=== PATIENT | male | born 1965 | race Caucasian/White ===

== ENCOUNTER 2019-10-29 17:24 | Inpatient (IN) | payer OTHER ==
[~2019-10-29] VITALS: Ht 177.8 cm; Wt 100.7 kg
[2019-10-29 18:52] LABS: BASOPHILS ABSOLUTE AUTO 0.03 K/mm3 (0.00-0.23); BASOPHILS PERCENT AUTO 0 % (0-2); EOSINOPHILS ABSOLUTE AUTO 0.03 K/mm3 (0.00-0.68); EOSINOPHILS PERCENT AUTO 0 % (0-6); IMMATURE GRAN ABSOLUTE AUTO 0.01 K/mm3 (0.00-0.10); IMMATURE GRAN PERCENT AUTO 0 % (0-1); LYMPHOCYTES ABSOLUTE AUTO 1.34 K/mm3 (0.84-5.20); LYMPHOCYTES PERCENT AUTO 19 % (21-46); MONOCYTES ABSOLUTE AUTO 0.67 K/mm3 (0.16-1.47); MONOCYTES PERCENT AUTO 10 % (4-13); Mean Corpuscular HGB 30.6 pg (26.0-34.0); Mean Corpuscular HGB Conc 31.4 g/dL (31.5-36.5); Mean Corpuscular Volume 98 fL (80-100); Mean Platelet Volume 9.9 fL (9.1-12.4); NEUTROPHILS ABSOLUTE AUTO 4.92 K/mm3 (1.96-9.15); NEUTROPHILS PERCENT AUTO 70 % (41-73); Platelet Count 197 K/mm3 (150-400); RDW Coefficient Variation 15.2 % (11.7-14.2); RDW Standard Deviation 54.3 fL (35.1-46.3); Red Blood Cell Count 5.88 M/mm3 (4.30-5.90)
[2019-10-29 18:55] LABS: Hematocrit 57.4 % (37.0-53.0)
[2019-10-29 19:13] LABS: Alanine Aminotransfer (ALT/SGP 53 U/L (12-78); Albumin, Blood 3.3 g/dL (3.4-5.0); Albumin/Globulin Ratio 0.9 (0.8-1.8); Alk Phos 97 U/L (50-136); Anion Gap 2 mmol/L (6-16); Aspartate Aminotrans (AST/SGOT 23 U/L (12-37); Bilirubin, Total 0.9 mg/dL (0.1-1.0); Blood Urea Nitrogen 11 mg/dL (8-24); Bun/Creatinine Ratio 30.4 (12.0-20.0); CO2, Blood 37 mmol/L (21-32); Calcium, Blood 8.9 mg/dL (8.5-10.1); Chloride, Blood 98 mmol/L (98-108); Creatinine, Blood 0.36 mg/dL (0.60-1.20); Globulin, Blood 3.5 g/dL (2.2-4.0); Glomerular Filtration Rate >60 (60-); Glucose, Blood 93 mg/dL (70-99); Sodium, Blood 137 mmol/L (136-145); Total Protein, Blood 6.8 g/dL (6.4-8.2); Troponin I 0.021 ng/mL (0.000-0.040)
[2019-10-29 22:13] LABS: CPK Creatine Kinase 213 U/L (39-308); Free Thyroxine 1.28 ng/dL (0.70-1.60)
--- NOTE | 2019-10-30 05:02 | NUR ---
SHIFT SUMMARY: VSS. AFEB. 02 SATS 93-98% ON 2L VIA NC. 02 SAT DROPPED TO 84% ON RA WHEN PT HAD REMOVED 02. PT EDUCATED ABOUT NEED FOR SUPPLEMENTAL 02 AT THIS TIME AND REPLACED NC. DENIES SOB. LSCTA BILATEARLLY W/DIM BASES. SLEPT MINIMALLY. BLE EDEMA +4 PITTING FROM TOES TO MID GENAO. T/F W/1 ASSIST. CONTINENT AND VOIDING IN URINAL. GENERALLY WEAK. NO APPARENT FINE MOTOR MOVEMENTS. MAKING NEEDS KNOWN. WILL CONT TO MONITOR.
--- NOTE | 2019-10-30 08:45 | NUR ---
PT PLEASANT COOP A/O. PRESENTS SOMEWHAT UNMOTIVATED. STATES LIGHT WEAKNESS, BUT NORE COORDINATION ISSUES. FINGER TO NOSE DONE WITH POOR COORDINATION, ABLE TO TOUCH, NOT SMOOTHLY. STOOD FOR BSC TRANSFER, HAS LEGS SPREAD WIDE TO BALANCE. STATES MORE KNEE THAN STRENGTH PROBLEM. ABLE TO STAND, BUT SHAKEY, WEAK. H/R REG, NO MURMER NOTED. PER TELE NSR AT 87 WITH BBB. LUNGS CLEAR, RESP EASY, UNLABORED. ON 2L O2. THIS IS NEW FOR PT. BT X4 LAST BM TODAY. VOIDS URINAL. 1 MOD ASST TO BSC. +2 BLE EDEMA . PT STATES AT LEAST FOR A WEEK. BED IN LOW POSITION,, CALL LITE IN REACH, CALLS APPROP. MOTHER ENTERED TO ROOM.
[2019-10-30 09:01] LABS: BASOPHILS ABSOLUTE AUTO 0.03 K/mm3 (0.00-0.23); BASOPHILS PERCENT AUTO 0 % (0-2); EOSINOPHILS ABSOLUTE AUTO 0.02 K/mm3 (0.00-0.68); EOSINOPHILS PERCENT AUTO 0 % (0-6); IMMATURE GRAN ABSOLUTE AUTO 0.02 K/mm3 (0.00-0.10); IMMATURE GRAN PERCENT AUTO 0 % (0-1); LYMPHOCYTES ABSOLUTE AUTO 1.74 K/mm3 (0.84-5.20); LYMPHOCYTES PERCENT AUTO 24 % (21-46); MONOCYTES ABSOLUTE AUTO 0.64 K/mm3 (0.16-1.47); MONOCYTES PERCENT AUTO 9 % (4-13); Mean Corpuscular HGB 30.3 pg (26.0-34.0); Mean Corpuscular HGB Conc 30.4 g/dL (31.5-36.5); Mean Corpuscular Volume 100 fL (80-100); Mean Platelet Volume 10.3 fL (9.1-12.4); NEUTROPHILS ABSOLUTE AUTO 4.68 K/mm3 (1.96-9.15); NEUTROPHILS PERCENT AUTO 66 % (41-73); Platelet Count 216 K/mm3 (150-400); RDW Coefficient Variation 14.8 % (11.7-14.2); RDW Standard Deviation 55.2 fL (35.1-46.3); Red Blood Cell Count 5.94 M/mm3 (4.30-5.90); White Blood Cell Count 7.13 K/mm3 (4.00-11.30)
[2019-10-30 09:02] LABS: Hematocrit 59.2 % (37.0-53.0)
[2019-10-30 09:04] LABS: Hemoglobin 18.2 g/dL (13.5-17.5); Mean Corpuscular HGB 30.4 pg (26.0-34.0); Mean Corpuscular HGB Conc 30.5 g/dL (31.5-36.5); Mean Corpuscular Volume 100 fL (80-100); Mean Platelet Volume 10.2 fL (9.1-12.4); Platelet Count 227 K/mm3 (150-400); RDW Standard Deviation 55.6 fL (35.1-46.3); Red Blood Cell Count 5.98 M/mm3 (4.30-5.90); White Blood Cell Count 7.08 K/mm3 (4.00-11.30)
[2019-10-30 09:06] LABS: Hematocrit 59.6 % (37.0-53.0)
[2019-10-30 09:22] LABS: Alanine Aminotransfer (ALT/SGP 51 U/L (12-78); Albumin, Blood 3.4 g/dL (3.4-5.0); Albumin/Globulin Ratio 0.9 (0.8-1.8); Alk Phos 98 U/L (50-136); Anion Gap 5 mmol/L (6-16); Aspartate Aminotrans (AST/SGOT 25 U/L (12-37); Bilirubin, Total 0.9 mg/dL (0.1-1.0); Blood Urea Nitrogen 9 mg/dL (8-24); CO2, Blood 40 mmol/L (21-32); Chloride, Blood 93 mmol/L (98-108); Creatinine, Blood 0.41 mg/dL (0.60-1.20); Globulin, Blood 3.6 g/dL (2.2-4.0); Glomerular Filtration Rate >60 (60-); Glucose, Blood 62 mg/dL (70-99); Potassium, Blood 4.6 mmol/L (3.5-5.5); Sodium, Blood 138 mmol/L (136-145)
[2019-10-30 10:10] LABS: Source, Urine Clean Catch
[2019-10-30 10:20] LABS: Bilirubin, Urine Neg (Neg); Blood, Urine Neg (Neg); Glucose Qualitative, Urine Neg (Neg); Ketones, Urine 2+ (Neg); Leukocyte Esterase, Urine Neg (Neg); Nitrite, Urine Neg (Neg); Protein, Urine Neg (Neg); Urobilinogen, Urine NORM (Normal)
[2019-10-30 10:21] LABS: Appearance, Urine Clear (Clear); Color, Urine Yellow (P-Yellow)
--- NOTE | 2019-10-30 11:23 | NUR ---
spoke to dr ferrer re cortisol. okay im if is standard. pharmacy states is normal for im. order was placed .
--- NOTE | 2019-10-30 13:06 | NUR ---
Echocardiogram completed.
--- NOTE | 2019-10-30 15:30 | NUR ---
AIDE CALLED. STATES PT HARD TO AWAKEN.. NOW AWAKE, BUT SLOW TO RESPOND. WHEN I CAME TO ROOM. PT WAS AWAKE. ABLE TO TELL ME NAME . TELL ME MY NAME AND POSITION. PRESENTED FULLY A/O. VSS. TELE NSR WITH BBB RATE 90'S. NO RECENT EVENTS. P97 R16 T 98.0 97%O2 ON [address]L CALLED DR LINDO. NO NEW ORDERS DID SUGGEST TO BRING COFFEE
--- NOTE | 2019-10-30 18:17 | NUR ---
PT PLEASANT TODAY., HAD EPISODE OF LOWER LOC. WAS SLEEPING, VERY HARD TO AWAKEN. 2-3 MIN LATER AWAKE AND TALKING. VSS, SEE NOTES. NO NEW ORDERS. MOTHER IN ROOM MOST OF DAY. PENDING CARDIOLITE TEST TOMORROW. NPO MIDNITE. OTHER BLOOD DIAGNOSTIC TESTS PENDING ALSO. PT DID STATE HAS FELT IF HAS HAD A PAST PRIOR INSTANCE OF FEELING HARD TO AWAKEN. NO OTHER CONCERNS AT THIS TIME. BED IN LOW POSITION, CALL LITE IN REACH, CALLS APROP
--- NOTE | 2019-10-31 05:14 | NUR ---
DISH CARRIER SUMMARY Patient slept well after family left at hs. no complaints of pain overnight. Around 0300, Patient didn't respond to voice when rounding was done. He woke groggily with gentle sternal rub so vitals and 02 saturation could be checked. 02 rapidly went up from 82% on 2 liters to 94% over about 30 seconds as he woke. Patient uncomfortable with 02 in mouth, however it was noted that he sleeps with his mouth wide open,. When patient woke, he was A&OX4. 02 saturation remained >90% for rest of night. Family state that patient does have episodes at night of stopping breathing. It was also noted that patient is unable to make "blowing" motion to exhale. Unable to make a seal around IS or acapella to work on breathing. Pt feels that he is unable to exhale all his air. RT informed and will come to eval and make recommendations for breathing exercises.
[2019-10-31 06:13] LABS: BASOPHILS ABSOLUTE AUTO 0.02 K/mm3 (0.00-0.23); BASOPHILS PERCENT AUTO 0 % (0-2); EOSINOPHILS ABSOLUTE AUTO 0.04 K/mm3 (0.00-0.68); EOSINOPHILS PERCENT AUTO 1 % (0-6); Hemoglobin 17.1 g/dL (13.5-17.5); IMMATURE GRAN ABSOLUTE AUTO 0.01 K/mm3 (0.00-0.10); IMMATURE GRAN PERCENT AUTO 0 % (0-1); LYMPHOCYTES ABSOLUTE AUTO 0.99 K/mm3 (0.84-5.20); LYMPHOCYTES PERCENT AUTO 19 % (21-46); MONOCYTES ABSOLUTE AUTO 0.58 K/mm3 (0.16-1.47); MONOCYTES PERCENT AUTO 11 % (4-13); Mean Corpuscular HGB 30.4 pg (26.0-34.0); Mean Corpuscular HGB Conc 30.5 g/dL (31.5-36.5); Mean Corpuscular Volume 100 fL (80-100); Mean Platelet Volume 10.5 fL (9.1-12.4); NEUTROPHILS PERCENT AUTO 68 % (41-73); Platelet Count 199 K/mm3 (150-400); RDW Coefficient Variation 14.7 % (11.7-14.2); RDW Standard Deviation 54.8 fL (35.1-46.3); Red Blood Cell Count 5.62 M/mm3 (4.30-5.90); White Blood Cell Count 5.14 K/mm3 (4.00-11.30)
[2019-10-31 06:22] LABS: Hematocrit 56.1 % (37.0-53.0)
[2019-10-31 06:44] LABS: Anion Gap 7 mmol/L (6-16); Blood Urea Nitrogen 11 mg/dL (8-24); Bun/Creatinine Ratio 23.4 (12.0-20.0); CO2, Blood 34 mmol/L (21-32); Calcium, Blood 8.7 mg/dL (8.5-10.1); Chloride, Blood 97 mmol/L (98-108); Creatinine, Blood 0.47 mg/dL (0.60-1.20); Glomerular Filtration Rate >60 (60-); Glucose, Blood 71 mg/dL (70-99); Potassium, Blood 4.8 mmol/L (3.5-5.5); Sodium, Blood 138 mmol/L (136-145)
--- NOTE | 2019-10-31 16:34 | NUR ---
PATIENT A/OX4, UP WITH FWW, GB AND 2 ASSIST TO RESTROOM. GAIT VERY WEAK AND UNCOORDINATED. 1ST PART OF STRESS TEST DONE TODAY, 2ND PART WILL BE DONE IN AM. VSS, ON 3LO2 TO MAINTAIN SATS. 2+ EDEMA TO BLE, RECEIVING LASIX. SKIN INTACT. 20G IV TO R FA WNL AND SL. MOTHER AT BEDSIDE THROUGHOUT THIS SHIFT. DENIES ANY PAIN. CALM AND COOPERATIVE WITH CARE. CALLS APPROPRIATELY FOR ASSISTANCE.
--- NOTE | 2019-11-01 04:21 | NUR ---
EVENT MARKETING REPRESENTATIVE SUMMARY Patient states no pain overnight. Was unable to go to sleep at time sleep study was set up for him as he said he is usually up all night watching TV. When I explained again that the sleep study was to evaluate whether or not he has VILMA, and that in order to do this, the patient needed to perform some pertinent sleep hygiene in order for the test to be done, he agreed. Lights and TV off, and patient understood he was to attempt to go to sleep. Door closed for quiet atmosphere. Patient NPO since 2400 for stress portion of FARHAT in AM
[2019-11-01 05:48] LABS: BASOPHILS ABSOLUTE AUTO 0.01 K/mm3 (0.00-0.23); BASOPHILS PERCENT AUTO 0 % (0-2); EOSINOPHILS ABSOLUTE AUTO 0.04 K/mm3 (0.00-0.68); EOSINOPHILS PERCENT AUTO 1 % (0-6); Hemoglobin 17.1 g/dL (13.5-17.5); IMMATURE GRAN ABSOLUTE AUTO 0.01 K/mm3 (0.00-0.10); IMMATURE GRAN PERCENT AUTO 0 % (0-1); LYMPHOCYTES ABSOLUTE AUTO 0.97 K/mm3 (0.84-5.20); LYMPHOCYTES PERCENT AUTO 23 % (21-46); MONOCYTES ABSOLUTE AUTO 0.46 K/mm3 (0.16-1.47); MONOCYTES PERCENT AUTO 11 % (4-13); Mean Corpuscular HGB Conc 29.8 g/dL (31.5-36.5); Mean Corpuscular Volume 101 fL (80-100); Mean Platelet Volume 9.5 fL (9.1-12.4); NEUTROPHILS ABSOLUTE AUTO 2.82 K/mm3 (1.96-9.15); NEUTROPHILS PERCENT AUTO 66 % (41-73); Platelet Count 192 K/mm3 (150-400); RDW Coefficient Variation 14.8 % (11.7-14.2); RDW Standard Deviation 55.8 fL (35.1-46.3); White Blood Cell Count 4.31 K/mm3 (4.00-11.30)
[2019-11-01 05:50] LABS: Hematocrit 57.3 % (37.0-53.0)
[2019-11-01 09:38] LABS: Source, Urine Clean Catch
[2019-11-01 09:50] LABS: Appearance, Urine Clear (Clear); Bilirubin, Urine Neg (Neg); Blood, Urine Neg (Neg); Color, Urine Yellow (P-Yellow); Glucose Qualitative, Urine Neg (Neg); Ketones, Urine Neg (Neg); Leukocyte Esterase, Urine Neg (Neg); Nitrite, Urine Neg (Neg); Protein, Urine Neg (Neg); Urobilinogen, Urine NORM (Normal)
[2019-11-01 10:26] LABS: Hemoglobin 17.9 g/dL (13.5-17.5); Mean Corpuscular HGB 30.8 pg (26.0-34.0); Mean Corpuscular HGB Conc 30.2 g/dL (31.5-36.5); Mean Corpuscular Volume 102 fL (80-100); Mean Platelet Volume 10.1 fL (9.1-12.4); Platelet Count 207 K/mm3 (150-400); RDW Coefficient Variation 14.8 % (11.7-14.2); RDW Standard Deviation 56.1 fL (35.1-46.3); Red Blood Cell Count 5.82 M/mm3 (4.30-5.90); White Blood Cell Count 5.71 K/mm3 (4.00-11.30)
[2019-11-01 10:27] LABS: Hematocrit 59.2 % (37.0-53.0)
[2019-11-01 10:47] LABS: BASOPHILS PERCENT MAN 0 % (0-2); EOSINOPHILS PERCENT MAN 0 % (0-6); LYMPHOCYTES % ATYPICAL MANUAL 2 % (0-0); LYMPHOCYTES ABSOLUTE MAN 0.74 K/mm3 (0.84-5.20); LYMPHOCYTES PERCENT MAN 11 % (21-46); MONOCYTES ABSOLUTE MAN 0.57 K/mm3 (0.16-1.47); MONOCYTES PERCENT MAN 10 % (4-13); NEUTROPHILS ABSOLUTE MAN 4.39 K/mm3 (1.96-9.15); SEG NEUTROPHILS PERCENT MAN 77 % (41-73); TOTAL CELLS COUNTED 100
--- NOTE | 2019-11-01 17:08 | NUR ---
ALERT. ORIENTED. DENIES PAIN OR SOB. HAD LAST PART OF STRESS TEST. AWAITING RESULTS. UNLABORED RESPIRATIONS. ABLE TO MAKE NEEDS KNOWN. WCTM
[2019-11-02 05:29] LABS: BASOPHILS ABSOLUTE AUTO 0.03 K/mm3 (0.00-0.23); BASOPHILS PERCENT AUTO 1 % (0-2); EOSINOPHILS ABSOLUTE AUTO 0.04 K/mm3 (0.00-0.68); EOSINOPHILS PERCENT AUTO 1 % (0-6); Hemoglobin 17.7 g/dL (13.5-17.5); IMMATURE GRAN ABSOLUTE AUTO 0.01 K/mm3 (0.00-0.10); IMMATURE GRAN PERCENT AUTO 0 % (0-1); LYMPHOCYTES ABSOLUTE AUTO 1.27 K/mm3 (0.84-5.20); LYMPHOCYTES PERCENT AUTO 26 % (21-46); MONOCYTES ABSOLUTE AUTO 0.56 K/mm3 (0.16-1.47); MONOCYTES PERCENT AUTO 12 % (4-13); Mean Corpuscular HGB 30.3 pg (26.0-34.0); Mean Corpuscular HGB Conc 30.1 g/dL (31.5-36.5); Mean Corpuscular Volume 101 fL (80-100); NEUTROPHILS ABSOLUTE AUTO 2.97 K/mm3 (1.96-9.15); NEUTROPHILS PERCENT AUTO 61 % (41-73); Platelet Count 227 K/mm3 (150-400); RDW Coefficient Variation 14.5 % (11.7-14.2); RDW Standard Deviation 53.8 fL (35.1-46.3); Red Blood Cell Count 5.84 M/mm3 (4.30-5.90); White Blood Cell Count 4.88 K/mm3 (4.00-11.30)
[2019-11-02 05:41] LABS: Hematocrit 58.8 % (37.0-53.0)
[2019-11-02 05:53] LABS: Alanine Aminotransfer (ALT/SGP 42 U/L (12-78); Albumin, Blood 3.4 g/dL (3.4-5.0); Albumin/Globulin Ratio 0.9 (0.8-1.8); Alk Phos 86 U/L (50-136); Anion Gap 0 mmol/L (6-16); Aspartate Aminotrans (AST/SGOT 22 U/L (12-37); Bilirubin, Total 0.7 mg/dL (0.1-1.0); Blood Urea Nitrogen 11 mg/dL (8-24); Bun/Creatinine Ratio 33.6 (12.0-20.0); CO2, Blood 43 mmol/L (21-32); Calcium, Blood 9.1 mg/dL (8.5-10.1); Chloride, Blood 91 mmol/L (98-108); Creatinine, Blood 0.33 mg/dL (0.60-1.20); Globulin, Blood 3.8 g/dL (2.2-4.0); Glomerular Filtration Rate >60 (60-); Glucose, Blood 103 mg/dL (70-99); Potassium, Blood 4.7 mmol/L (3.5-5.5); Sodium, Blood 134 mmol/L (136-145); Total Protein, Blood 7.2 g/dL (6.4-8.2)
--- NOTE | 2019-11-02 07:18 | NUR ---
SHIFT SUMMARY: PATIENT IS A&OX 3, VS ARE STABLE NO COMPLAINTS OF PAIN OR SOB, USING THE URINAL TO VOID. RENAL ULTRASOUND WAS COMPLETED LAST EVENING AND A CARDIALOGY AND HEM/OCOLOGY CONSULTS WERE CALLED.
[2019-11-02] MEDS ORDERED: ASPI81CH PO (12:51)
[2019-11-02] MEDS ORDERED: ATEN25 PO (12:51)
[2019-11-02] MEDS ORDERED: ONDA4ODT MM (13:12)
[2019-11-02] MEDS ORDERED: FURO20 PO (13:12)
[2019-11-02] MEDS ORDERED: POTA10T PO (13:13)
--- NOTE | 2019-11-02 17:11 | NUR ---
REVIEW D'C INSTRUCTIONS W/PATIENT. MOTHER IS PICKING UP OXYGEN. AWARE HAS 2 APPTS--FRIDAY W/NEW PCP AND 11/23 W/. AWARE HAS MEDS AT [facility]. ANSWER ALL QUESTIONS. WAITING FOR RELATIVE TO EMAIL DESIGNER.
== END 2019-11-02 17:54 | disposition home or self-care (01) | DRG 947 ==
LOC: ER 17:24 → MEDS 17:25 → ENPENDDIS 11-02 11:54 → MEDS 11-02 17:54
PROVIDERS: Family Medicine; Physician Assistant; ADMIT Internal Medicine
DX: R60.0 Localized edema (principal); J96.21 Acute and chronic respiratory failure with hypoxia; J98.11 Atelectasis; M62.81 Muscle weakness (generalized); D75.1 Secondary polycythemia; I50.810 Right heart failure, unspecified; Q67.6 Pectus excavatum; E66.9 Obesity, unspecified; Z87.891 Personal history of nicotine dependence; G47.33 Obstructive sleep apnea (adult) (pediatric); J44.9 Chronic obstructive pulmonary disease, unspecified
CPT/HCPCS: 36415; 70450; 71260; 72125; 74177; 76770; 78452; 80048; 80053; 80400; 81003; 81270; 82533; 82550; 83540; 83550; 83735; 83880; 84439; 84443; 84484; 85007; 85025; 85027; 93005; 93010; 93017; 93306; 93970; 94761; 94762; 96372; 96374-59; 97110; 97161; 97166; 97530; 99285-25; A9270-GY; A9500; G0378; J0706; J0834; J1650; J1940; J2785; Q9967

== ENCOUNTER 2019-11-07 10:38 | Emergency (ER) | payer OTHER ==
[~2019-11-07] VITALS: Ht 177.8 cm; Wt 101.2 kg
[~2019-11-07 10:38] MED LIST: ASPI81CH PO; ATEN25 PO; FURO20 PO; ONDA4ODT MM; POTA10T PO
[2019-11-07] MEDS ORDERED: RELIEF KNEE CL1 EACH EXT (11:09)
== END 2019-11-07 12:58 | disposition home or self-care (01) ==
LOC: ER 10:38
DX: I50.9 Heart failure, unspecified (principal); R09.02 Hypoxemia; R09.81 Nasal congestion; R53.1 Weakness; Z88.0 Allergy status to penicillin; Z79.82 Long term (current) use of aspirin; Z79.899 Other long term (current) drug therapy; Z87.891 Personal history of nicotine dependence
CPT/HCPCS: 99283

== ENCOUNTER 2021-01-20 08:24 | Emergency (ER) | payer OTHER ==
[~2021-01-20] VITALS: Ht 177.8 cm; Wt 106.6 kg
[~2021-01-20 08:24] MED LIST changes: +RELIEF KNEE CL1 EACH EXT
[2021-01-20 09:23] LABS: BASOPHILS ABSOLUTE AUTO 0.03 K/mm3 (0.00-0.23); BASOPHILS PERCENT AUTO 1 % (0-2); EOSINOPHILS ABSOLUTE AUTO 0.09 K/mm3 (0.00-0.68); EOSINOPHILS PERCENT AUTO 2 % (0-6); Hematocrit 53.1 % (37.0-53.0); Hemoglobin 17.2 g/dL (13.5-17.5); IMMATURE GRAN PERCENT AUTO 0 % (0-1); LYMPHOCYTES ABSOLUTE AUTO 1.83 K/mm3 (0.84-5.20); LYMPHOCYTES PERCENT AUTO 32 % (21-46); MONOCYTES ABSOLUTE AUTO 0.56 K/mm3 (0.16-1.47); MONOCYTES PERCENT AUTO 10 % (4-13); Mean Corpuscular HGB 30.8 pg (26.0-34.0); Mean Corpuscular HGB Conc 32.4 g/dL (31.5-36.5); Mean Corpuscular Volume 95 fL (80-100); Mean Platelet Volume 10.8 fL (9.1-12.4); NEUTROPHILS ABSOLUTE AUTO 3.24 K/mm3 (1.96-9.15); NEUTROPHILS PERCENT AUTO 56 % (41-73); Platelet Count 216 K/mm3 (150-400); RDW Coefficient Variation 13.2 % (11.7-14.2); RDW Standard Deviation 46.9 fL (35.1-46.3); Red Blood Cell Count 5.58 M/mm3 (4.30-5.90); White Blood Cell Count 5.75 K/mm3 (4.00-11.30)
[2021-01-20 09:37] LABS: Alanine Aminotransfer (ALT/SGP 58 U/L (12-78); Albumin, Blood 3.7 g/dL (3.4-5.0); Albumin/Globulin Ratio 0.9 (0.8-1.8); Alk Phos 97 U/L (50-136); Anion Gap 1 mmol/L (6-16); Aspartate Aminotrans (AST/SGOT 29 U/L (12-37); Bilirubin, Total 0.8 mg/dL (0.1-1.0); Blood Urea Nitrogen 12 mg/dL (8-24); Bun/Creatinine Ratio 21.7 (12.0-20.0); CO2, Blood 34 mmol/L (21-32); Calcium, Blood 8.9 mg/dL (8.5-10.1); Chloride, Blood 102 mmol/L (98-108); Creatinine, Blood 0.55 mg/dL (0.60-1.20); Glomerular Filtration Rate >60 (60-); Glucose, Blood 90 mg/dL (70-99); Potassium, Blood 4.2 mmol/L (3.5-5.5); Sodium, Blood 137 mmol/L (136-145); Total Protein, Blood 7.7 g/dL (6.4-8.2); Troponin I <0.015 ng/mL (0.000-0.040)
[2021-01-20] MEDS ORDERED: FURO20 PO (10:31)
[2021-01-20] MEDS ORDERED: FUROSEMIDE40 MG PO (10:41)
[2021-01-20] MEDS ORDERED: METO25ER PO (10:45)
== END 2021-01-20 11:00 | disposition home or self-care (01) ==
LOC: ER 08:24
PROVIDERS: Physician Assistant
DX: I10 Essential (primary) hypertension (principal); Z88.0 Allergy status to penicillin; Z79.82 Long term (current) use of aspirin; Z79.899 Other long term (current) drug therapy; Z87.891 Personal history of nicotine dependence
CPT/HCPCS: 36415; 71046; 80053; 83880; 84484; 85025; 93005; 93010; 99284-25; A9270

== ENCOUNTER 2021-01-24 12:24 | Emergency (ER) | payer OTHER ==
[~2021-01-24] VITALS: Ht 177.8 cm; Wt 106.6 kg
[~2021-01-24 12:24] MED LIST changes: +FUROSEMIDE40 MG PO; +METO25ER PO
[2021-01-24 13:06] LABS: BASOPHILS ABSOLUTE AUTO 0.03 K/mm3 (0.00-0.23); BASOPHILS PERCENT AUTO 0 % (0-2); EOSINOPHILS ABSOLUTE AUTO 0.12 K/mm3 (0.00-0.68); EOSINOPHILS PERCENT AUTO 2 % (0-6); Hemoglobin 18.2 g/dL (13.5-17.5); IMMATURE GRAN ABSOLUTE AUTO 0.01 K/mm3 (0.00-0.10); IMMATURE GRAN PERCENT AUTO 0 % (0-1); LYMPHOCYTES ABSOLUTE AUTO 2.54 K/mm3 (0.84-5.20); LYMPHOCYTES PERCENT AUTO 35 % (21-46); MONOCYTES ABSOLUTE AUTO 0.69 K/mm3 (0.16-1.47); MONOCYTES PERCENT AUTO 10 % (4-13); Mean Corpuscular HGB 30.8 pg (26.0-34.0); Mean Corpuscular HGB Conc 32.9 g/dL (31.5-36.5); Mean Corpuscular Volume 94 fL (80-100); Mean Platelet Volume 10.8 fL (9.1-12.4); NEUTROPHILS ABSOLUTE AUTO 3.86 K/mm3 (1.96-9.15); NEUTROPHILS PERCENT AUTO 53 % (41-73); Platelet Count 234 K/mm3 (150-400); RDW Coefficient Variation 12.8 % (11.7-14.2); RDW Standard Deviation 44.9 fL (35.1-46.3); Red Blood Cell Count 5.91 M/mm3 (4.30-5.90); White Blood Cell Count 7.25 K/mm3 (4.00-11.30)
[2021-01-24 13:08] LABS: Hematocrit 55.3 % (37.0-53.0)
[2021-01-24 13:33] LABS: Alanine Aminotransfer (ALT/SGP 69 U/L (12-78); Albumin, Blood 3.9 g/dL (3.4-5.0); Albumin/Globulin Ratio 0.9 (0.8-1.8); Alk Phos 101 U/L (50-136); Anion Gap 4 mmol/L (6-16); Aspartate Aminotrans (AST/SGOT 44 U/L (12-37); Bilirubin, Total 0.8 mg/dL (0.1-1.0); Blood Urea Nitrogen 10 mg/dL (8-24); Bun/Creatinine Ratio 17.9 (12.0-20.0); CO2, Blood 32 mmol/L (21-32); Calcium, Blood 9.4 mg/dL (8.5-10.1); Chloride, Blood 103 mmol/L (98-108); Creatinine, Blood 0.56 mg/dL (0.60-1.20); Globulin, Blood 4.2 g/dL (2.2-4.0); Glomerular Filtration Rate >60 (60-); Glucose, Blood 96 mg/dL (70-99); Potassium, Blood 4.6 mmol/L (3.5-5.5); Sodium, Blood 139 mmol/L (136-145); Total Protein, Blood 8.1 g/dL (6.4-8.2); Troponin I <0.015 ng/mL (0.000-0.040)
== END 2021-01-24 15:00 | disposition home or self-care (01) ==
LOC: ER 12:24
PROVIDERS: Physician Assistant
DX: R06.02 Shortness of breath (principal); Z79.899 Other long term (current) drug therapy; Z88.0 Allergy status to penicillin; Z87.891 Personal history of nicotine dependence
CPT/HCPCS: 36415; 71046; 80053; 83880; 84484; 85025; 93005; 93010; 99284-25

== ENCOUNTER 2021-01-24 19:43 | Emergency (ER) | payer OTHER ==
[~2021-01-24] VITALS: Ht 177.8 cm; Wt 122.5 kg
== END 2021-01-25 00:51 | disposition home or self-care (01) ==
LOC: ER 19:43
DX: F41.9 Anxiety disorder, unspecified (principal); Z88.0 Allergy status to penicillin; Z79.82 Long term (current) use of aspirin; Z79.899 Other long term (current) drug therapy
CPT/HCPCS: 36415; 71260; 84484; 93005; 93010; 99285-25; Q9967

== ENCOUNTER 2021-08-06 21:45 | Inpatient (IN) | payer OTHER ==
[~2021-08-06] VITALS: Ht 177.8 cm; Wt 101.7 kg
[2021-08-06 22:46] LABS: BASOPHILS ABSOLUTE AUTO 0.03 K/mm3 (0.00-0.23); BASOPHILS PERCENT AUTO 0 % (0-2); EOSINOPHILS ABSOLUTE AUTO 0.01 K/mm3 (0.00-0.68); EOSINOPHILS PERCENT AUTO 0 % (0-6); Hemoglobin 18.8 g/dL (13.5-17.5); IMMATURE GRAN ABSOLUTE AUTO 0.02 K/mm3 (0.00-0.10); IMMATURE GRAN PERCENT AUTO 0 % (0-1); LYMPHOCYTES ABSOLUTE AUTO 1.15 K/mm3 (0.84-5.20); LYMPHOCYTES PERCENT AUTO 14 % (21-46); MONOCYTES ABSOLUTE AUTO 0.63 K/mm3 (0.16-1.47); MONOCYTES PERCENT AUTO 8 % (4-13); Mean Corpuscular HGB 31.3 pg (26.0-34.0); Mean Corpuscular HGB Conc 32.9 g/dL (31.5-36.5); Mean Corpuscular Volume 95 fL (80-100); NEUTROPHILS ABSOLUTE AUTO 6.46 K/mm3 (1.96-9.15); NEUTROPHILS PERCENT AUTO 78 % (41-73); Platelet Count 220 K/mm3 (150-400); RDW Coefficient Variation 14.1 % (11.7-14.2); Red Blood Cell Count 6.01 M/mm3 (4.30-5.90)
[2021-08-06 22:51] LABS: Hematocrit 57.2 % (37.0-53.0)
[2021-08-06 23:06] LABS: Alanine Aminotransfer (ALT/SGP 38 U/L (12-78); Albumin, Blood 3.3 g/dL (3.4-5.0); Albumin/Globulin Ratio 0.9 (0.8-1.8); Alk Phos 96 U/L (50-136); Anion Gap 4 mmol/L (6-16); Aspartate Aminotrans (AST/SGOT 20 U/L (12-37); Bilirubin, Total 0.9 mg/dL (0.1-1.0); Blood Urea Nitrogen 13 mg/dL (8-24); Bun/Creatinine Ratio 33.3 (12.0-20.0); CO2, Blood 38 mmol/L (21-32); Calcium, Blood 8.8 mg/dL (8.5-10.1); Chloride, Blood 84 mmol/L (98-108); Creatinine, Blood 0.39 mg/dL (0.60-1.20); Globulin, Blood 3.7 g/dL (2.2-4.0); Glomerular Filtration Rate >60 (60-); Glucose, Blood 107 mg/dL (70-99); Potassium, Blood 5.3 mmol/L (3.5-5.5); Sodium, Blood 126 mmol/L (136-145); Troponin I <0.015 ng/mL (0.000-0.040)
[2021-08-06 23:38] LABS: Influenza A, PCR NEGATIVE (NEGATIVE); Influenza B, PCR NEGATIVE (NEGATIVE); Resp Syncytial Virus, PCR NEGATIVE (NEGATIVE)
[2021-08-06 23:46] LABS: SARS-Cov-2 (COVID-19) PCR, MMC POSITIVE (NEGATIVE)
[2021-08-07 05:44] LABS: BASOPHILS ABSOLUTE AUTO 0.04 K/mm3 (0.00-0.23); BASOPHILS PERCENT AUTO 1 % (0-2); EOSINOPHILS PERCENT AUTO 0 % (0-6); Hemoglobin 19.7 g/dL (13.5-17.5); IMMATURE GRAN ABSOLUTE AUTO 0.12 K/mm3 (0.00-0.10); IMMATURE GRAN PERCENT AUTO 2 % (0-1); LYMPHOCYTES ABSOLUTE AUTO 0.42 K/mm3 (0.84-5.20); LYMPHOCYTES PERCENT AUTO 5 % (21-46); MONOCYTES PERCENT AUTO 1 % (4-13); Mean Corpuscular HGB 31.1 pg (26.0-34.0); Mean Corpuscular HGB Conc 31.9 g/dL (31.5-36.5); Mean Corpuscular Volume 98 fL (80-100); Mean Platelet Volume 10.2 fL (9.1-12.4); NEUTROPHILS ABSOLUTE AUTO 7.53 K/mm3 (1.96-9.15); NEUTROPHILS PERCENT AUTO 92 % (41-73); Platelet Count 198 K/mm3 (150-400); RDW Coefficient Variation 14.2 % (11.7-14.2); RDW Standard Deviation 50.9 fL (35.1-46.3); Red Blood Cell Count 6.34 M/mm3 (4.30-5.90); White Blood Cell Count 8.21 K/mm3 (4.00-11.30)
[2021-08-07 05:48] LABS: Hematocrit 61.8 % (37.0-53.0)
[2021-08-07 06:45] LABS: Alanine Aminotransfer (ALT/SGP 42 U/L (12-78); Albumin, Blood 3.3 g/dL (3.4-5.0); Albumin/Globulin Ratio 0.8 (0.8-1.8); Alk Phos 111 U/L (50-136); Anion Gap 10 mmol/L (6-16); Aspartate Aminotrans (AST/SGOT 62 U/L (12-37); Bilirubin, Total 1.2 mg/dL (0.1-1.0); Blood Urea Nitrogen 11 mg/dL (8-24); Bun/Creatinine Ratio 33.4 (12.0-20.0); CO2, Blood 30 mmol/L (21-32); Calcium, Blood 8.2 mg/dL (8.5-10.1); Chloride, Blood 86 mmol/L (98-108); Creatinine, Blood 0.33 mg/dL (0.60-1.20); Glomerular Filtration Rate >60 (60-); Glucose, Blood 143 mg/dL (70-99); Sodium, Blood 126 mmol/L (136-145); Total Protein, Blood 7.3 g/dL (6.4-8.2)
[2021-08-07 06:46] LABS: Potassium, Blood 6.4 mmol/L (3.5-5.5)
[2021-08-07 08:46] LABS: Base Excess Venous 10.3 mmol/L; Bicarbonate Venous 27.8 mmol/L (24.0-30.0); pH Blood Venous 7.15 (7.34-7.37)
[2021-08-07 08:48] LABS: PCO2 Venous > 105 mmHg (38-42)
[2021-08-07 10:50] LABS: PCO2 Arterial > 105 mmHg (35-45); PO2 Arterial 125 mmHg (80-100); pH Blood Arterial 7.18 (7.35-7.45)
[2021-08-07 12:01] LABS: PCO2 Arterial 92.7 mmHg (35-45); PO2 Arterial 88.2 mmHg (80-100); pH Blood Arterial 7.24 (7.35-7.45)
[2021-08-07 12:46] LABS: Anion Gap 5 mmol/L (6-16); Blood Urea Nitrogen 12 mg/dL (8-24); Bun/Creatinine Ratio 25.8 (12.0-20.0); CO2, Blood 40 mmol/L (21-32); Chloride, Blood 84 mmol/L (98-108); Creatinine, Blood 0.47 mg/dL (0.60-1.20); Glomerular Filtration Rate >60 (60-); Glucose, Blood 114 mg/dL (70-99); Potassium, Blood 6.1 mmol/L (3.5-5.5); Sodium, Blood 129 mmol/L (136-145)
[2021-08-07 13:10] LABS: Anion Gap 7 mmol/L (6-16); Blood Urea Nitrogen 13 mg/dL (8-24); Bun/Creatinine Ratio 30.9 (12.0-20.0); CO2, Blood 33 mmol/L (21-32); Calcium, Blood 8.8 mg/dL (8.5-10.1); Chloride, Blood 88 mmol/L (98-108); Creatinine, Blood 0.42 mg/dL (0.60-1.20); Glomerular Filtration Rate >60 (60-); Glucose, Blood 122 mg/dL (70-99); Potassium, Blood 5.3 mmol/L (3.5-5.5); Sodium, Blood 128 mmol/L (136-145)
[2021-08-07 17:17] LABS: Anion Gap 3 mmol/L (6-16); Blood Urea Nitrogen 11 mg/dL (8-24); Bun/Creatinine Ratio 30.5 (12.0-20.0); CO2, Blood 38 mmol/L (21-32); Calcium, Blood 9.3 mg/dL (8.5-10.1); Chloride, Blood 90 mmol/L (98-108); Creatinine, Blood 0.36 mg/dL (0.60-1.20); Glomerular Filtration Rate >60 (60-); Glucose, Blood 81 mg/dL (70-99); Sodium, Blood 131 mmol/L (136-145)
--- NOTE | 2021-08-07 18:39 | NUR ---
NEW ADMIT FROM ER [id number]: AOX4 BUT CONFUSED AT TIMES, SLOW TO RESPOND, MENTATION IMPROVED OVER SHIFT, DENIES P/N/V, PUPILS EQUAL BRISK, BIPAP 30% FOR HYPERCAPNIA, ABG IMPROVEMENT IN ACIDOSIS, LUNGS DIM, DENIES SOB, SATS WNL ON BIPAP, DESATS MID 70S WITH LONG RECOVERY TIME W/O BIPAP, BP'S SOFT THIS SHIFT, LR BOLUS AND GTT TO MAINTAIN MAP>65, +2 STRONG PULSES, VOIDS URINAL, LBM 08/05 PER PATIENT, SWALLOW PASSED, MECHANICAL SOFT DIET PLACED.
[2021-08-08 04:00] LABS: Bicarbonate Venous 33.7 mmol/L (24.0-30.0); PCO2 Venous 40.5 mmHg (38-42); PO2 Venous 33.7 mmHg (38-42); pH Blood Venous 7.54 (7.34-7.37)
--- NOTE | 2021-08-08 04:08 | NUR ---
VBG results read back to Dr. Fernandez: ph 7.54, CO2 40.5, P02 33.7, HCO3 33.7 No changes to BiPAP at this time, per Dr. Fernandez: awaiting results of chem/other labs before making interventions. Patient currently sating well in mid to high 90s% with RR in low tachypnic in 20s.
[2021-08-08 04:13] LABS: Hemoglobin 18.4 g/dL (13.5-17.5); Mean Corpuscular HGB 31.5 pg (26.0-34.0); Mean Corpuscular HGB Conc 32.7 g/dL (31.5-36.5); Mean Corpuscular Volume 96 fL (80-100); Mean Platelet Volume 10.7 fL (9.1-12.4); Platelet Count 211 K/mm3 (150-400); RDW Coefficient Variation 14.3 % (11.7-14.2); RDW Standard Deviation 51.1 fL (35.1-46.3); Red Blood Cell Count 5.85 M/mm3 (4.30-5.90); White Blood Cell Count 8.99 K/mm3 (4.00-11.30)
[2021-08-08 04:15] LABS: Hematocrit 56.2 % (37.0-53.0)
[2021-08-08 05:27] LABS: Anion Gap 12 mmol/L (6-16); Blood Urea Nitrogen 12 mg/dL (8-24); Bun/Creatinine Ratio 28.4 (12.0-20.0); CO2, Blood 30 mmol/L (21-32); Chloride, Blood 94 mmol/L (98-108); Creatinine, Blood 0.42 mg/dL (0.60-1.20); Glomerular Filtration Rate >60 (60-); Glucose, Blood 52 mg/dL (70-99); Potassium, Blood 5.9 mmol/L (3.5-5.5); Sodium, Blood 136 mmol/L (136-145)
--- NOTE | 2021-08-08 05:46 | NUR ---
Dr. Fernandez called for lab results: K 5.9 Glucose 52 and NBP 87/55 (65) pt hx of fluid responsive with previous 150ml/hr LR x1L. Orders for NS bolus, D50, insulin, Ca Gluc and recheck at 10am.
--- NOTE | 2021-08-08 06:47 | NUR ---
End of shift summary: Patient ph change from acidotic to alkalotic --> BiPAP remains on Patient potassium level elevated again --> insulin regular and calc gluc order Patient glucose serum low --> dextrose amp Patient oriented x4 overnight, low motivation to attempt self care but patient did assist RN with turning self. No BM. Urinal use with assist. Refused bath. Oral care provided x3 overnight. NBP low this morning --> 500ml NS bolus ordered and running Patient has 2 PIVs, flush fine but no blood return and difficult poke for phlebotomy this morning.
--- NOTE | 2021-08-08 17:30 | NUR ---
SHIFT SUMMARY PT DID WELL THIS SHIFT. PT HAS REMAINED AWAKE, ALERT, AND ORIENTED THIS SHIFT. PT HAS REMAINED OFF BIPAP AND ON NC ALL DAY. NC TITRATED DOWN TO 2L 02 AT THIS TIME. VITAL SIGNS HAVE REMAINED STABLE. PT TAKING IN PO INTAKE WELL. PT USES URINAL INDEPENDENTLY TO VOID. PT REMAINS WEAK, BUT IS ABLE TO MOVE SELF IN BED FOR COMFORT. PT MOTHER AT BEDSIDE TO VISIT THIS AFTERNOON. WILL CONTINUE TO MONITOR AND REPORT OFF TO ONCOMING RN.
[2021-08-08 20:23] LABS: Anion Gap 2 mmol/L (6-16); Blood Urea Nitrogen 12 mg/dL (8-24); Bun/Creatinine Ratio 25.5 (12.0-20.0); CO2, Blood 39 mmol/L (21-32); Chloride, Blood 96 mmol/L (98-108); Creatinine, Blood 0.47 mg/dL (0.60-1.20); Glomerular Filtration Rate >60 (60-); Glucose, Blood 105 mg/dL (70-99); Sodium, Blood 137 mmol/L (136-145)
--- NOTE | 2021-08-08 21:18 | NUR ---
Patient declined PO colace tonight, patient stated he is not constipated and had a BM earlier today.
--- NOTE | 2021-08-09 00:07 | NUR ---
Dr. Fernandez called for update on blood cultures. Awaiting response/call back.
--- NOTE | 2021-08-09 01:17 | NUR ---
Called Dr. Fernandez for blood culture result --> no interventions at this time, wait for final result
[2021-08-09 05:11] LABS: Anion Gap 6 mmol/L (6-16); Blood Urea Nitrogen 11 mg/dL (8-24); Bun/Creatinine Ratio 25.5 (12.0-20.0); CO2, Blood 37 mmol/L (21-32); Calcium, Blood 8.9 mg/dL (8.5-10.1); Chloride, Blood 97 mmol/L (98-108); Creatinine, Blood 0.43 mg/dL (0.60-1.20); Glomerular Filtration Rate >60 (60-); Glucose, Blood 60 mg/dL (70-99); Potassium, Blood 5.2 mmol/L (3.5-5.5); Sodium, Blood 140 mmol/L (136-145)
--- NOTE | 2021-08-09 06:32 | NUR ---
End of shift summary: Patient VSS. No PRNs required overnight. Patient alert and oriented. Follow commands. Generalized weakness but equal strenght bilaterally. (Pending muscular dystrophy diagnosis with PCP per pt.) Sinus Rhythm to Sinus Tach overnight with prolonged QRS (>0.12). No CP/SOB. BLE to lower feet remain present with cap refill > 3 seconds. BUE edema decreased. Extremities elevated on pillows x4. BIPAP worn HS: 14/6, 30% rate 18 --> 2-3L NC when awake, lungs clear/dim Negative GI/ and skin assessment. Blood culture 1/2 positive. Awaiting final results.
--- NOTE | 2021-08-09 17:53 | NUR ---
SHIFT SUMMARY PT DID WELL THIS SHIFT. PT HAS REMAINED AWAKE, ALERT AND ORIENTED. PT HAS REMAINED ON 2L O2 NC ALL SHIFT. PT DENIES SOB. VITAL SIGNS HAVE REMAINED STABLE. NS INFUSING TKO. PT USING URINAL INDEPENDENTLY AND PT REPOSITIONS SELF IN BED INDEPENDENTLY. PT TAKING PO INTAKE WELL. PT MOTHER AT BEDSIDE THIS AFTERNOON. UPDATED TO PLAN OF CARE. WILL CONTINUE TO MONITOR AND REPORT OFF TO ONCOMING RN.
--- NOTE | 2021-08-09 22:21 | NUR ---
Dr. Justice called: Patient HR change from sinus tach low 100s to SVT 150s-160s sustained about 20 seconds without symptoms. No SOB. No CP. No c/o heart palpitations, etc. Orders for labs and EKG.
--- NOTE | 2021-08-09 22:50 | NUR ---
EKG reading: Vent. rate 80bpm RUDY 190ms QRS 132ms QT/QTc 394/454ms Normal sinus rhythm Possible Left atrial enlargement Indeterminate axis Right BBB Inferior infarct, age undetermined Anterolateral infarct, age undetermined Abnormal ECG Blood drawn by merchandise manager: labs sent, pending results
[2021-08-09 23:09] LABS: Anion Gap 3 mmol/L (6-16); Blood Urea Nitrogen 14 mg/dL (8-24); Bun/Creatinine Ratio 32.2 (12.0-20.0); CO2, Blood 31 mmol/L (21-32); Calcium, Blood 8.9 mg/dL (8.5-10.1); Chloride, Blood 101 mmol/L (98-108); Creatinine, Blood 0.44 mg/dL (0.60-1.20); Glomerular Filtration Rate >60 (60-); Glucose, Blood 138 mg/dL (70-99); Magnesium, Blood 1.8 mg/dL (1.6-2.4); Potassium, Blood 5.7 mmol/L (3.5-5.5); Sodium, Blood 135 mmol/L (136-145)
--- NOTE | 2021-08-09 23:53 | NUR ---
Dr. Justice notified of EKG and lab results: K 5.7 BUN 14 Cre 0.44 GFR > 60 Mag 1.8 Intervention orders: 1 gm of Mag, redraw BMP routine in morning, no additional interventions for EKG other than updated report to next RN
[2021-08-10 04:15] LABS: Magnesium, Blood 2.2 mg/dL (1.6-2.4)
[2021-08-10 04:18] LABS: Anion Gap 6 mmol/L (6-16); Blood Urea Nitrogen 12 mg/dL (8-24); Bun/Creatinine Ratio 26.8 (12.0-20.0); CO2, Blood 35 mmol/L (21-32); Calcium, Blood 9.6 mg/dL (8.5-10.1); Chloride, Blood 98 mmol/L (98-108); Creatinine, Blood 0.45 mg/dL (0.60-1.20); Glomerular Filtration Rate >60 (60-); Glucose, Blood 87 mg/dL (70-99); Potassium, Blood 6.2 mmol/L (3.5-5.5); Sodium, Blood 139 mmol/L (136-145)
--- NOTE | 2021-08-10 04:23 | NUR ---
Call made to Dr. Fernandez to notify of critical potassium 6.2: waiting for call back.
--- NOTE | 2021-08-10 06:32 | NUR ---
End of shift summary: Magnesium sulfate given for Magnesium 1.8 1 amp D50, 5u R insulin, and calcium gluconate given for critical K 6.2 (recheck at 0900) EKG taken for unsustained SVT 150s-160s. (No s/s during event, NBP and pulse ox WNL) BiPAP use for approx 4 hours overnight.
--- NOTE | 2021-08-10 08:45 | NUR ---
AM NOTE.... ASSUMED CARE OF PT AT 0700, THE PT IS A&Ox4, HE IS ON 2L NC WITH O2 SATS >90% L/S CLEAR IN THE UPPER/MID AND DIM IN THE LOWER LOBES. THE PT'S BP IS CURRENTLY STABLE. THE PT IS IN SR W/BBB IN THE 80'S-90'S ST W/BBB WITH ACTIVITY/EXERTION. THE PT HAS 1+ EDEMA TO HIS BLE AND DEPENDENT EDEMA TO HIS BUE. THE PT DENIES ANY PAIN AT THIS TIME. BT PRESENT AND HYPOATIVE, ABD IS SOFT AND NONTENDER TO PALP. THE PT IS ABLE TO USE THE URINAL INDEPENDENTLY IN THE BED. HE ALSO ATE ALL OF HIS BREAKFAST THIS AM. THE PT HAD A BED BATH AND LINEN CHANGE BY THE WATERWORKS EMPLOYEE THIS AM. CALL LIGHT IN REACH WILL CONTINUE TO MONITOR.
--- NOTE | 2021-08-10 11:05 | NUR ---
PT UPDATE.... THE PT WAS TRIALED OFF OF O2 FOR APROX 30 MINS, HIS O2 SATS WERE 90-91% BUT WOULD DROP DOWN TO 86-87% WITH TALKING OR MOVEMENT, THE PT'S O2 WAS PLACED BACK ON THE PT AT 1.5L VIA NC TO KEEP HIS O2 SATS >89%. THE PT DENIED ANY SOB DURING THESE EPISODES OF HYPOXIA. WILL CONTINUE TO MONITOR.
--- NOTE | 2021-08-10 17:28 | NUR ---
SHIFT SUMMARY.... NO ACUTE NEGATIVE CHANGES NOTED THIS SHIFT. THE PT'S VS HAVE BEEN STABLE T/O THIS SHIFT. THE PT HAS BEEN ON RA-2L NC TO KEEP HIS O2 SATS >90%. THE PT WORKED WITH PT/OT AND DID WELL. THE PT IS TO USE HIS NEW HOME BIPAP WHILE SLEEPING AND NC WHILE AWAKE. THE PT AND HIS MOTHER WERE EDUATED ON THE PT'S CURRENT ILLNESS, COVID 19, ISOLATION PRECAUTIONS, THE NEW BIPAP, AND THE IMPORTANCE OF HIS WEARING THE BIPAP WHILE SLEEPING. BOTH THE PT AND HIS MOTHER VERBALIZED THEIR UNDERSTANDING. BUT THE PT'S MOTHER WAS SEEN SEVERAL TIMES WITHOUT HER MASK WHILE SITTING IN THE ROOM, EACH TIME THE PT'S MOTHER WAS REMINDED OF THE VISITING POLICY, THE IMPORTANCE OF PREVENTING COVID 19 INFECTION AND SPREAD OF THE ILLNESS. REPORT WAS GIVEN TO [facility] BETTINA GONCALVES. ALL OF PT'S BELONGINGS WERE PACKED AND SENT WITH THE PT.
--- NOTE | 2021-08-11 04:29 | NUR ---
BLANCHING MACHINE OPERATOR SUMMARY ADMITTED FOR ACUTE RESPIRATORY FAILURE SECONDARY TO COVID-19. PT IS FULL CODE. PLAN FOR DISCHARGE WITH POSSIBLE HOME HEALTH. PT STILL SLEEPING WITH CPAP AT NIGHT. SATTING IN THE MID 90S ON 2L BY NC DURING THE DAY. PT IS ON BEDREST AND USING THE URINAL. APPEARS WEAK. ALERT AND ORIENTED X4. PLEASANT AND COOPERATIVE. NO OTHER CONCERNS THIS SHIFT.
[2021-08-11 05:42] LABS: Hemoglobin 18.2 g/dL (13.5-17.5); Mean Corpuscular HGB 31.3 pg (26.0-34.0); Mean Corpuscular HGB Conc 32.3 g/dL (31.5-36.5); Mean Corpuscular Volume 97 fL (80-100); Mean Platelet Volume 10.5 fL (9.1-12.4); Platelet Count 186 K/mm3 (150-400); RDW Coefficient Variation 14.6 % (11.7-14.2); RDW Standard Deviation 52.7 fL (35.1-46.3); Red Blood Cell Count 5.81 M/mm3 (4.30-5.90); White Blood Cell Count 5.17 K/mm3 (4.00-11.30)
[2021-08-11 05:44] LABS: Hematocrit 56.3 % (37.0-53.0)
[2021-08-11 05:56] LABS: Anion Gap 5 mmol/L (6-16); Blood Urea Nitrogen 15 mg/dL (8-24); Bun/Creatinine Ratio 33.3 (12.0-20.0); CO2, Blood 34 mmol/L (21-32); Calcium, Blood 8.9 mg/dL (8.5-10.1); Chloride, Blood 101 mmol/L (98-108); Creatinine, Blood 0.45 mg/dL (0.60-1.20); Glomerular Filtration Rate >60 (60-); Glucose, Blood 79 mg/dL (70-99); Potassium, Blood 4.6 mmol/L (3.5-5.5); Sodium, Blood 140 mmol/L (136-145)
--- NOTE | 2021-08-11 15:07 | NUR ---
SHIFT SUMMARY PT AWAKE AT START OF SHIFT, WANTING BIPAP OFF. PT IS A&O, PLEASANT AND CO-OP. HX MS WITH WEAKNESS THRU OUT AND GREATER ON LEFT SIDE. PT REPORTS THAT HE CAN STAND PIVOT TO CHAIR OR BED AND PUSHES A W/C IN FRONT OF HIM FOR MOBILITY, INSTEAD OF A WALKER WHEN AT HOME. PT WAS TO D/C TO HOME TODAY WITH H/H; HOWEVER, PT STILL NEEDING ABX AND STERIODS AND PHARMACY'S CLOSED FOR JORGE. PT'S MOM IN TO VISIT THIS AFTERNOON. NO C/O. DENIES FURTHER NEEDS AT THIS TIME.
--- NOTE | 2021-08-12 06:04 | NUR ---
PT IS ORIENTED X4 WITH MILD CONFUSION. PT SLEPT ON AND OFF THROUGH NIGHT HE IS USING HIS CPAP MACHINE. NO BM IN 3 DAYS, REFUSED EXTRA BC MEDS BUT TOOK PRUNE JUICE. NOT OTHER CHANGES NOTED. STAFF WILL CONT TO MONITOR.
[2021-08-12] MEDS ORDERED: DEXA6 PO (16:38)
[2021-08-12] MEDS ORDERED: VISBIOME 112.51 EACH PO (16:38)
[2021-08-12] MEDS ORDERED: LEVO750 PO (16:39)
--- NOTE | 2021-08-12 18:19 | NUR ---
PT DISCHARGED HOME WITH HOME HEALTH. PT HAD ALL PERSONAL BELONGINGS COLLECTED. FAMILY GOT HOME O2 SET UP FOR PT AND TRANSPORTED VIA AUTOMOBILE HOME. PT DOING WELL AOX3 AND COOPERATIVE OF CARE. PT WAS A ONE PERSON TO WHEELCHAIR. ALL PERSONAL ITEMS COLLECTED AND SENT WITH PT. PAPERWORK REVIEWED WITH SON AND PT. BOTH VERBALIZED UNDERSTANDING. PT ESCORTED TO CAR VIA WHEELCHAIR BY THIS SHRINKING MACHINE OPERATOR.
== END 2021-08-12 17:35 | disposition home health service (06) | DRG 177 ==
LOC: ER 21:45 → ERHOLD 08-07 01:03 → ICUW 08-07 11:10 → MEDS 08-10 17:25
PROVIDERS: Family Medicine; Hospitalist; Internal Medicine; Physician Assistant; Student in an Organized Health Care Education/Training Program; ADMIT Internal Medicine
PROC: 8E0ZXY6 Isolation (ICD-10-PCS; principal; 2021-08-07)
PROC: 3E0333Z Introduction of Anti-inflammatory into Peripheral Vein, Percutaneous Approach (ICD-10-PCS; 2021-08-07)
PROC: XW033E5 Introduction of Remdesivir Anti-infective into Peripheral Vein, Percutaneous Approach, New Technology Group 5 (ICD-10-PCS; 2021-08-07)
PROC: XW0DXM6 Introduction of Baricitinib into Mouth and Pharynx, External Approach, New Technology Group 6 (ICD-10-PCS; 2021-08-07)
PROC: 5A09357 Assistance with Respiratory Ventilation, Less than 24 Consecutive Hours, Continuous Positive Airway Pressure (ICD-10-PCS; 2021-08-07)
DX: U07.1 COVID-19 (principal); J96.01 Acute respiratory failure with hypoxia; J12.82 Pneumonia due to coronavirus disease 2019; J96.02 Acute respiratory failure with hypercapnia; G92.8 Other toxic encephalopathy; R78.81 Bacteremia; E87.3 Alkalosis; E87.1 Hypo-osmolality and hyponatremia; I11.0 Hypertensive heart disease with heart failure; I50.9 Heart failure, unspecified; E66.9 Obesity, unspecified; B96.89 Other specified bacterial agents as the cause of diseases classified elsewhere; Z68.34 Body mass index [BMI] 34.0-34.9, adult; E87.5 Hyperkalemia; Z98.890 Other specified postprocedural states; Z88.0 Allergy status to penicillin; Z79.82 Long term (current) use of aspirin; Z79.899 Other long term (current) drug therapy
CPT/HCPCS: 0241U; 36415; 36600; 71045; 80048; 80053; 82803; 83735; 83880; 84132; 84484; 85025; 85027; 87040; 87077; 87186; 93005; 93010; 93306; 94660; 94760; 94762; 96374; 97112; 97162; 97530; 99285-25; A9270; C9399; J0610; J1100; J1650; J1815; J1956; J3475; J7030; J7120

== ENCOUNTER → 2025-08-17 | Outpatient (CLI) | payer OTHER ==
[~2025-08-17] MED LIST changes: +DEXA6 PO; +LEVO750 PO; +VISBIOME 112.51 EACH PO
[2025-08-17 19:48] LABS: BASOPHILS ABSOLUTE AUTO 0.01 K/mm3 (0.00-0.23); BASOPHILS PERCENT AUTO 0 % (0-2); EOSINOPHILS ABSOLUTE AUTO 0.05 K/mm3 (0.00-0.68); EOSINOPHILS PERCENT AUTO 2 % (0-6); Hematocrit 22.8 % (37.0-53.0); Hemoglobin 7.2 g/dL (13.5-17.5); IMMATURE GRAN ABSOLUTE AUTO 0.01 K/mm3 (0.00-0.10); IMMATURE GRAN PERCENT AUTO 0 % (0-1); LYMPHOCYTES ABSOLUTE AUTO 0.90 K/mm3 (0.84-5.20); LYMPHOCYTES PERCENT AUTO 29 % (21-46); MONOCYTES ABSOLUTE AUTO 0.20 K/mm3 (0.16-1.47); MONOCYTES PERCENT AUTO 7 % (4-13); Mean Corpuscular HGB Conc 31.6 g/dL (31.5-36.5); Mean Corpuscular Volume 99 fL (80-100); NEUTROPHILS ABSOLUTE AUTO 1.89 K/mm3 (1.96-9.15); NEUTROPHILS PERCENT AUTO 62 % (41-73); NRBC ABSOLUTE 0.00 K/mm3 (0.00-0.02); NRBC Auto 0.0 /100 WBC (0.0-0.2); Platelet Count 101 K/mm3 (150-400); RDW Coefficient Variation 14.5 % (11.7-14.2); RDW Standard Deviation 52.7 fL (35.1-46.3)
== END | disposition home or self-care (01) ==
LOC: LAB 18:30 → LAB SHORT 18:30
PROVIDERS: Nurse Practitioner Family
DX: Z13.6 Encounter for screening for cardiovascular disorders (principal); I10 Essential (primary) hypertension
CPT/HCPCS: 85025